=== PATIENT | female | born 1975 | race Two or more races ===

== ENCOUNTER 2023-07-11 11:57 | Emergency (ER) | payer MEDICAID ==
[~2023-07-11] VITALS: Ht 172.7 cm; Wt 64.1 kg
[2023-07-11 11:58] VITALS: TEMP 97.5
[2023-07-11] MEDS: DiphenhydrAMINE HCL 25 MG CAPSULE PO ONE (12:40)
[2023-07-11] MEDS: PredniSONE 20 MG TABLET PO ONE (12:40)
[2023-07-11] MEDS ORDERED: PRED-554 PO (13:51)
[2023-07-11] MEDS ORDERED: DIPH-1243 PO (13:51)
[2023-07-11 14:13] VITALS: BP 117/74; PULSE 64; RESP 18
== END 2023-07-11 14:29 | disposition home or self-care (01) ==
LOC: EDBD 11:57 → EMS 11:57
DX: T78.1XXA Other adverse food reactions, not elsewhere classified, initial encounter (principal); Z98.890 Other specified postprocedural states; Z90.49 Acquired absence of other specified parts of digestive tract; Z91.013 Allergy to seafood; X58.XXXA Exposure to other specified factors, initial encounter
CPT/HCPCS: 99283; J7512

== ENCOUNTER 2023-07-21 23:33 | Emergency (ER) | payer MEDICAID ==
[~2023-07-21] VITALS: Ht 167.6 cm; Wt 70.0 kg
[~2023-07-21 23:33] MED LIST: DIPH-1243 PO; PRED-554 PO
[2023-07-21 23:44] VITALS: BP 103/64; PULSE 69; RESP 16; TEMP 97.9
[2023-07-21] MEDS ORDERED: PRED-554 PO (23:50)
[2023-07-21] MEDS ORDERED: DIPH25CA53 PO (23:50)
[2023-07-21] MEDS: PredniSONE 20 MG TABLET PO ONE (23:53)
[2023-07-21] MEDS: DiphenhydrAMINE HCL 25 MG CAPSULE PO ONE (23:53)
== END 2023-07-21 23:58 | disposition home or self-care (01) ==
LOC: EMS 23:34
DX: L50.9 Urticaria, unspecified (principal); Z91.013 Allergy to seafood
CPT/HCPCS: 99283; J7512